=== PATIENT | male | born 1995 | race African-American/Black ===

== ENCOUNTER 2017-02-08 00:23 | Emergency (ER) | payer BC, OTHER ==
[~2017-02-08] VITALS: Ht 160 cm; Wt 77.1 kg
[2017-02-08 00:34] VITALS: BP 129/86
== END 2017-02-08 01:39 | disposition home or self-care (01) ==
LOC: ER 00:25
DX: S01.81XA Laceration without foreign body of other part of head, initial encounter (principal); W54.0XXA Bitten by dog, initial encounter; Y93.89 Activity, other specified; Y92.89 Other specified places as the place of occurrence of the external cause; Y99.9 Unspecified external cause status
CPT/HCPCS: A4606; A6402; Z7610